=== PATIENT | male | born 2000 | race African-American/Black ===

== ENCOUNTER 2022-07-18 15:48 | Emergency (ER) | payer MEDICAID ==
[~2022-07-18] VITALS: Ht 175.3 cm; Wt 68.5 kg
[~2022-07-18 15:48] MED LIST: TOPUD PO
[2022-07-18] MEDS ORDERED: CARB-274 EACH EAR (21:41)
[2022-07-18 21:57] VITALS: BP 114/78
== END 2022-07-18 21:58 | disposition home or self-care (01) ==
LOC: ER 15:48
DX: H61.23 Impacted cerumen, bilateral (principal); H93.12 Tinnitus, left ear
CPT/HCPCS: 99282

== ENCOUNTER 2022-07-23 21:38 | Emergency (ER) | payer MEDICAID ==
[~2022-07-23] VITALS: Ht 177.8 cm; Wt 65.5 kg
[~2022-07-23 21:38] MED LIST changes: +CARB-274 EACH EAR
[2022-07-24 00:02] VITALS: BP 131/87
== END 2022-07-24 03:13 | disposition home or self-care (01) ==
LOC: ER 21:38
DX: H61.22 Impacted cerumen, left ear (principal); H90.2 Conductive hearing loss, unspecified
CPT/HCPCS: 99281